=== PATIENT | male | born 1990 | race American Indian/Alaskan Native ===

== ENCOUNTER 2018-10-07 07:03 | Emergency (ER) | payer OTHER ==
[2018-10-07 07:16] VITALS: BP 121/73
[2018-10-07] MEDS ORDERED: ZOFRAN ODT PO ONE (07:31)
[2018-10-07 07:34] LABS: Basophils % (Auto) 0.3 % (0.0-1.8); Eosinophils # (Auto) 0.1 K/mm3 (0.0-0.4); Eosinophils % (Auto) 1.2 % (0.0-4.3); Hematocrit 45.5 % (35.5-45.6); Hemoglobin 15.1 gm/dl (11.8-15.2); Lymphocytes # (Auto) 1.4 K/mm3 (1.2-5.4); Lymphocytes % (Auto) 25.2 % (13.4-35.0); Mean Corpuscular HGB Conc 33 % (32-34); Mean Corpuscular Volume 94 fl (84-94); Monocytes # (Auto) 0.8 K/mm3 (0.0-0.8); Monocytes % (Auto) 14.6 % (0.0-7.3); Platelet Count 254 K/mm3 (140-440); Red Blood Count 4.85 M/mm3 (3.65-5.03); Red Cell Distribution Width 14.3 % (13.2-15.2)
[2018-10-07 07:54] LABS: Alanine Aminotransferase 12 units/L (7-56); Albumin 3.9 g/dL (3.9-5); BUN/Creatinine Ratio 12; Blood Urea Nitrogen 12 mg/dL (9-20); Calcium 8.7 mg/dL (8.4-10.2); Hemolysis Index 90
--- NOTE | 2018-10-07 09:06 | Emergency Department Report ---
Vomiting/Diarrhea - HPI Chief Complaint: Nausea/Vomiting/Diarrhea Stated Complaint: FLU SX/ABD PAIN Time Seen by Provider: 10/07/18 07:42 Duration: 1 Day Severity: mild Nausea/Vomiting Severity: Mild Diarrhea Severity: Mild Pain Severity: None Symptoms: Yes Watery Diarrhea, Yes Able to Tolerate Fluids, Yes Family w/ Sim ilar Symptoms (HERE W SIGN OTHER), Yes Contacts w/ Similar Symptoms, No Bloody diarrhea, No Fever (SUBJ), No Recent Unusual Foods, No Recent Untreated Water, No Recent use of Antibiotics, No Rash, No Hematuria, No Recent URI Symptoms Other History: 1 DAY HISTORY N/V/D AND SUBJECTIVE FEVER. NO TACHY OR HYPOTENSION. NO FEVER IN ER. AMBULATORY AND NONTOXIC. ED Review of Systems ROS: Stated complaint: FLU SX/ABD PAIN Other details as noted in HPI Comment: All other systems reviewed and negative ED Past Medical Hx - Past Medical History Previous Medical History?: No - Surgical History Past Surgical History?: No - Social History Smoking Status: Never Smoker Substance Use Type: None - Medications Home Medications: Home Medications Medication Instructions Recorded Confirmed Last Taken Type Ondansetron [Zofran Odt] 4 mg PO Q8HR PRN #10 tab.rapdis 10/07/18 Unknown Rx Vomiting Diarrhea Exam - Exam General: Vital signs noted. No distress. Alert and acting appropriately. HEENT: Yes Moist Mucous Membranes, No Pharyngeal Erythema, No Pharyngeal Exudates, No Rhinorrhea, No Conjuctival Injection, No Frontal Tenderness, No Maxillary Tenderness Neck: No Adenopathy, No Rigidity Lungs: Yes Clear Lung Sounds, Yes Good Air Exchange, No Wheezes, No Stridor, No Cough, No Nasal Flaring, No Retractions, No Use of Accessory Muscles Heart exam: Regular: Yes, Murmur: No, Tachycardia: No Abdomen: Tenderness: No, Peritoneal Signs: No, Distention: No, Hyperactive Bowel sounds: No Skin exam: Rash: No, Edema: No Neurologic: Alert and oriented, no deficits. Musculoskeletal: Unremarkable. ED Course Vital Signs 10/07/18 07:14 Temperature 98.5 F Pulse Rate 65 Respiratory 16 Rate Blood Pressure 121/73 ED Medical Decision Making - Lab Data Result diagrams: 10/07/18 07:20 10/07/18 07:20 - Medical Decision Making Lab Results 05/01/19 05/01/19 Range/Units 07:20 07:20 WBC 5.6 (4.5-11.0) K/mm3 RBC 4.85 (3.65-5.03) M/mm3 Hgb 15.1 (11.8-15.2) gm/dl Hct 45.5 (35.5-45.6) % MCV 94 (84-94) fl MCH 31 (28-32) pg MCHC 33 (32-34) % RDW 14.3 (13.2-15.2) % Plt Count 254 (140-440) K/mm3 Lymph % (Auto) 25.2 (13.4-35.0) % [place] % (Auto) 14.6 H (0.0-7.3) % Eos % (Auto) 1.2 (0.0-4.3) % Baso % (Auto) 0.3 (0.0-1.8) % Lymph # 1.4 (1.2-5.4) K/mm3 [place] # 0.8 (0.0-0.8) K/mm3 Eos # 0.1 (0.0-0.4) K/mm3 Baso # 0.0 (0.0-0.1) K/mm3 Seg Neutrophils % 58.7 (40.0-70.0) % Seg Neutrophils # 3.3 (1.8-7.7) K/mm3 Sodium 135 L (137-145) mmol/L Potassium 4.7 (3.6-5.0) mmol/L Chloride 103.4 (98-107) mmol/L Carbon Dioxide 21 L (22-30) mmol/L Anion Gap 15 mmol/L BUN 12 (9-20) mg/dL Creatinine 1.0 (0.8-1.5) mg/dL Estimated GFR > 60 ml/min BUN/Creatinine Ratio 12 % Glucose 93 (75-100) mg/dL Calcium 8.7 (8.4-10.2) mg/dL Total Bilirubin 0.20 (0.1-1.2) mg/dL AST 20 (5-40) units/L ALT 12 (7-56) units/L Alkaline Phosphatase 43 (35-129) units/L Total Protein 7.4 (6.3-8.2) g/dL Albumin 3.9 (3.9-5) g/dL Albumin/Globulin Ratio 1.1 % Vital Signs 10/07/18 07:14 Temperature 98.5 F Pulse Rate 65 Respiratory 16 Rate Blood Pressure 121/73 ZOFRAN FOR N/V NO N/V/D IN ER TAKING PO AMBULATORY VSS DC HOME WITH DC PLAN OF CARE. Critical care attestation.: If time is entered above; I have spent that time in minutes in the direct care of this critically ill patient, excluding procedure time. ED Disposition Clinical Impression: Gastroenteritis Disposition: [id number]-01 TO HOME OR SELFCARE Is pt being admited?: No Does the pt Need Aspirin: No Condition: Stable Instructions: Gastroenteritis (ED) Additional Instructions: DIET TOLERATED MEDS ORDERED TODAY IN ER FOLLOW INSTRUCTIONS ON THE BOTTLE FOLLOW UP PCP WITHIN 48 HOURS TO ENSURE YOU ARE GETTING BETTER ACTIVITY TOLERATED MOTRIN OR TYLENOL FOR PAIN OR FEVER RETURN TO THE ER FOR WORSENING SYMPTOMS NOT RELIEVED BY YOUR MEDICATIONS. DRINK A LOT OF WATER FOOD ADD SLOWLY TOLERATED Referrals: JAX EVANS MD [Primary Care Provider] - 3-5 Days Time of Disposition: 09:03
[2018-10-07 09:08] LABS: Bilirubin,Urine NEG (Negative); Blood,Urine SM (Negative); Color,Urine Yellow (Yellow); Protein,Urine <15 mg/dL mg/dL (Negative); Urobilinogen,Urine < 2.0 mg/dL (<2.0); WBC,Urine < 1.0 /HPF (0.0-6.0)
== END 2018-10-07 09:42 | disposition home or self-care (01) ==
LOC: ED 07:03
DX: K52.9 Noninfective gastroenteritis and colitis, unspecified (principal)
CPT/HCPCS: 36415; 80053; 81001; 85025; Q0162